=== PATIENT | male | born 2000 | race African-American/Black ===

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

== ENCOUNTER 2023-10-05 20:47 | Emergency (ER) | payer SELFPAY ==
[2023-10-05 20:49] VITALS: BP 137/92; PULSE 70; RESP 18; TEMP 37.6; O2SAT 99; BMI 26.9
--- NOTE | 2023-10-05 23:28 | ED.DENTAL ---
HPI - Dental/Oral General Chief complaint: Dental/Oral Stated complaint: face hurts/teeth/head Time Seen by Provider: 10/05/23 22:52 Source: patient Mode of arrival: Ambulatory History of Present Illness HPI Narrative: Patient is a healthy 22-year-old male who presents today with dental pain. It has been off and on for about the last 2 weeks but got significantly worse. Definitely sensitive to cold. He noticed a large chip in the site of his tooth. No fever chills. In excruciating pain. Takes Tylenol Motrin and marijuana. Related Data Previous Rx's Medication Instructions Recorded amoxicillin 500 mg capsule 500 mg PO BID #14 caps 10/06/23 gabapentin 300 mg capsule 300 mg PO BEDTIME #30 caps 10/06/23 Allergies Allergy/AdvReac Type Severity Reaction Status Date / Time No Known Drug Allergies Allergy Verified 07/04/20 09:44 Patient History Social History Smoking Status: Current every day smoker Smoking Status: Current every day smoker tobacco type: cigarettes alcohol intake frequency: holidays/special occasions only Alcohol type: beer Substance Use Type: marijuana and hallucinogens Exam Initial Vital Signs Initial Vital Signs: Vital Signs Temperature 99.6 F 10/05/23 20:49 Pulse Rate 70 10/05/23 20:49 Respiratory Rate 18 10/05/23 20:49 Blood Pressure 137/92 H 10/05/23 20:49 Pulse Oximetry 99 10/05/23 20:49 Oxygen Delivery Method Room Air 10/05/23 20:49 GENERAL: 22-year-old male appears in pain HENT: No significant facial swelling redness trismus CARDIOVASCULAR: peripheral pulses in tact, cap refill <2 sec RESPIRATORY: No respiratory distress, speaks in full sentences without difficulty EXTREMITIES: Normal range of motion, no clubbing or edema. Neurovascularly intact NEUROLOGICAL: Cranial nerves II through XII grossly intact. Normal gait and speech. SKIN: Warm, dry, no petechiae, no rashes or lesions. HENMT Adult Head Mouth w/Numbe Teeth: 1. Hole noted tooth 2. On the out side, no abscess Procedures Nerve Block Nerve Block 1: Time out performed: Yes Local Anesthetic: lidocaine 1% Amount of anesthesia used (mL): 1 Side: right Intraoral Nerve Block: supraperiosteal Procedure Successful: Yes Patient Tolerated Procedure: Well and No complications Course Orders Ordered: Discontinued Medications Amoxicillin (Amoxicillin 250 Mg Prepack) 1 bottle MISC DIRECTED ONE Stop: 10/05/23 23:58 Last Admin: 10/06/23 00:06 Dose: 1 bottle Documented By: KHANH Gabapentin (Gabapentin 300 Mg Capsule) 300 mg PO NOW ONE Stop: 10/05/23 23:58 Last Admin: 10/06/23 00:06 Dose: 300 mg Documented By: KHANH Vital Signs Vital signs: Vital Signs - 8 hr 10/05/23 20:49 10/06/23 00:13 Temperature 99.6 F Pulse Rate 70 60 Respiratory Rate 18 18 Blood Pressure 137/92 H 140/79 Pulse Oximetry 99 98 Oxygen Delivery Method Room Air Room Air MDM - Dental/Oral MDM Narrative Medical decision making narrative: Patient 22-year-old male presents today with dental pain has progressively gotten worse. He has an obvious deformity been missing enamel and dentin to the lateral side of his tooth. He did actually receive relief with a dental block. Tolerated procedure well. Cold packs was placed. Instructed soft diet. He is trying to get into a dentist he was waiting for insurance. He has no obvious dental abscess. He is being put on antibiotics as well. Given a dose gabapentin as well to help Discharge Plan Departure Patient Disposition: Home Clinical Impression: Dental injury Instructions: Tooth Fracture Activity Restrictions/Additional Instructions: *You have been diagnosed with dental injury *What to do: At this time soft diet. I suspect that that covering will fall off at some point. Do your best. You definitely need to follow-up with a dentist. *Continue to take medications as directed--> [facility] [place] Amoxicillin 500 mg twice a day for 7 days Gabapentin 300 mg at nighttime if needed for nerve pain Motrin 600 mg every 6 hours if needed for loic-ic-ssrnqcvj pain Tylenol 1000 mg every 6 hours if needed for iroi-[id number] pain *Follow up with your primary care provider in 2-3 days or call [phone] *Return to ER if you should have increasing pain swelling redness fever or any new, worsening or concerning symptoms Prescriptions: New amoxicillin 500 mg capsule 500 mg PO BID Qty: 14 0RF gabapentin 300 mg capsule 300 mg PO BEDTIME Qty: 30 0RF Referrals: Luke Vincent MD [Primary Care Provider] - Stand Alone Forms: Patient Portal/API
[2023-10-06] MEDS: AMOXICILLIN 250 MG PREPACK 1 BOTTLE MISC (00:06)
[2023-10-06] MEDS: GABAPENTIN 300 MG CAPSULE PO (00:06)
[2023-10-06 00:13] VITALS: BP 140/79; PULSE 60; RESP 18; O2SAT 98
== END 2023-10-06 00:12 | disposition home or self-care (01) ==
PROVIDERS: Emergency Provider Emergency Medicine; PCP Pediatrics
DX: K08.89 Other specified disorders of teeth and supporting structures (principal); S09.93XA Unspecified injury of face, initial encounter
CPT/HCPCS: 64400; 99283

== ENCOUNTER 2023-10-10 17:07 | Emergency (ER) | payer SELFPAY ==
[2023-10-10 17:12] VITALS: BP 142/82; PULSE 66; RESP 20; TEMP 36.4; O2SAT 98; BMI 25.7
[2023-10-10] MEDS: LIDOCAINE VISCOUS 2% 15 ML SOLUTION PO (17:50)
--- NOTE | 2023-10-10 18:05 | ED_ITS ---
HPI - Dental/Oral <Whitley Geiger PA-C - Last Filed: 10/10/23 18:57> General Chief complaint: Dental/Oral Stated complaint: tooth pain Time Seen by Provider: 10/10/23 17:19 Source: patient and other Mode of arrival: Family Vehicle History of Present Illness HPI Narrative: Patient is a 22-year-old who presents with dental pain. He was seen in the emergency room on 10/05/2023 for the same. He received a dental block and was prescribed Augmentin and gabapentin. He has been taking these medications but is having excruciating pain. He is also taking ibuprofen. He denies fever, chills, or bleeding from the site. He denies difficulty swallowing or managing his secretions. He went to the dentist at [facility] yesterday and they advised him that he will need to have that tooth extracted. He did not schedule a follow up appointment. He does not have a regular dentist. Related Data Previous Rx's Medication Instructions Recorded amoxicillin 500 mg capsule 500 mg PO BID #14 caps 10/06/23 gabapentin 300 mg capsule 300 mg PO BEDTIME #30 caps 10/06/23 Allergies Allergy/AdvReac Type Severity Reaction Status Date / Time No Known Drug Allergies Allergy Verified 07/04/20 09:44 Review of Systems <Whitley Geiger PA-C - Last Filed: 10/10/23 18:57> Review of Systems ROS Unobtainable: All systems reviewed & are unremarkable except as noted in HPI and below Patient History <Whitley Geiger PA-C - Last Filed: 10/10/23 18:57> Social History Smoking Status: Current every day smoker Smoking Status: Current every day smoker tobacco type: cigarettes alcohol intake frequency: holidays/special occasions only Alcohol type: beer Substance Use Type: marijuana and hallucinogens Exam <Whitley Geiger PA-C - Last Filed: 10/10/23 18:57> Narrative Exam Narrative: GENERAL: 22 year old patient appears stated age. Well-developed patient, in moderate distress. NEURO: AOx3. HEAD: Atraumatic. Normocephalic. EYES: Pupils equal round and reactive. Extraocular motions intact. No scleral icterus. No injection or drainage. ENT: Nose without bleeding or purulent drainage. Visible deformity of the right upper 2nd molar. No surrounding redness, erythema, drainage or evidence of abscess. No tender lymphadenopathy, no mastoid tenderness. Throat without erythema, tonsillar hypertrophy or exudate. Airway patent. RESPIRATORY: No distress. EXTREMITIES: No edema or joint tenderness. SKIN: No rash or erythema of visible areas Initial Vital Signs Initial Vital Signs: Vital Signs Temperature 97.5 F L 10/10/23 17:12 Pulse Rate 66 10/10/23 17:12 Respiratory Rate 20 10/10/23 17:12 Blood Pressure 142/82 H 10/10/23 17:12 Pulse Oximetry 98 10/10/23 17:12 Oxygen Delivery Method Room Air 10/10/23 17:12 <Dewayne Catalan DO - Last Filed: 10/10/23 19:23> Initial Vital Signs Initial Vital Signs: Vital Signs Temperature 97.5 F L 10/10/23 17:12 Pulse Rate 66 10/10/23 17:12 Respiratory Rate 20 10/10/23 17:12 Blood Pressure 142/82 H 10/10/23 17:12 Pulse Oximetry 98 10/10/23 17:12 Oxygen Delivery Method Room Air 10/10/23 17:12 Procedures <Whitley Geiger PA-C - Last Filed: 10/10/23 18:57> Nerve Block Nerve Block 1: Time out performed: Yes Local Anesthetic: lidocaine 2% and with epi Amount of anesthesia used (mL): 1.5 Side: right Intraoral Nerve Block: superior alveolar (posterior superior) Procedure Successful: Yes Patient Tolerated Procedure: Well Complications: none Additional Comments: Premedicated with viscous lidocaine to the injection site for 10 minutes prior to the procedure. Patient tolerated well and reports postprocedure pain score of 3/10, comfortable enough to go to sleep. Course <Whitley Geiger PA-C - Last Filed: 10/10/23 18:57> Orders Ordered: Discontinued Medications Bupivacaine HCl/Epinephrine Bitart (Bupivacaine 0.25% W/ Epi (Pf) 10 Ml Vial) 5 ml SUBCUT NOW ONE Stop: 10/10/23 17:41 Last Admin: 10/10/23 18:30 Dose: Not Given Documented By: KLS Lidocaine HCl (Lidocaine Viscous 2% 15 Ml Solution) 15 ml PO NOW ONE Stop: 10/10/23 17:41 Last Admin: 10/10/23 17:50 Dose: 15 ml Documented By: SB Lidocaine/Epinephrine (Lidocaine 2% W/Epi Inj) 20 ml INJ INTRA-OP ONE Stop: 10/10/23 18:10 Last Admin: 10/10/23 18:19 Dose: 20 ml Documented By: SB Vital Signs Vital signs: Vital Signs - 8 hr 10/10/23 17:12 10/10/23 18:45 Temperature 97.5 F L 98.2 F Pulse Rate 66 61 Respiratory Rate 20 16 Blood Pressure 142/82 H 126/62 Pulse Oximetry 98 97 Oxygen Delivery Method Room Air Room Air <Dewayne Catalan DO - Last Filed: 10/10/23 19:23> Orders Ordered: Discontinued Medications Bupivacaine HCl/Epinephrine Bitart (Bupivacaine 0.25% W/ Epi (Pf) 10 Ml Vial) 5 ml SUBCUT NOW ONE Stop: 10/10/23 17:41 Last Admin: 10/10/23 18:30 Dose: Not Given Documented By: FAIZAN Lidocaine HCl (Lidocaine Viscous 2% 15 Ml Solution) 15 ml PO NOW ONE Stop: 10/10/23 17:41 Last Admin: 10/10/23 17:50 Dose: 15 ml Documented By: SB Lidocaine/Epinephrine (Lidocaine 2% W/Epi Inj) 20 ml INJ INTRA-OP ONE Stop: 10/10/23 18:10 Last Admin: 10/10/23 18:19 Dose: 20 ml Documented By: SB Vital Signs Vital signs: Vital Signs - 8 hr 10/10/23 17:12 10/10/23 18:45 Temperature 97.5 F L 98.2 F Pulse Rate 66 61 Respiratory Rate 20 16 Blood Pressure 142/82 H 126/62 Pulse Oximetry 98 97 Oxygen Delivery Method Room Air Room Air MDM - Dental/Oral <Whitley Geiger PA-C - Last Filed: 10/10/23 18:57> MDM Narrative Medical decision making narrative: Multiple etiologies for patient's symptoms considered including, but not limited to: Dental pain, dental infection Patient returns to the ER for treatment of dental pain. He saw the dentist yesterday but does not have a follow up appointment for tooth extraction. He does not have a regular dentist. He says his pain is out of control (08/09) despite taking ibuprofen, gabapentin and his Augmentin. He has no fever or chills and no evidence of infection. Discussed limited interventions to help him at this time. He is interested in trying another nerve block and we will proceed with this. A posterior superior alveolar block was completed and patient reports a decrease in his pain to 3/10, was dozing off on reassessment. Patient is very satisfied and tolerated the procedure well. Discussed importance of following up Thursday morning to schedule surgery with a dentist. He should complete his antibiotic course. Patient's symptoms improved over duration of stay with above-stated therapies. Findings and discharge diagnosis discussed with patient/family followed by verbalization of understanding Return precautions discussed with patient/family whom verbalize understanding of diagnosis and plan Discharge Plan Departure Patient Disposition: Home Clinical Impression: Fracture of tooth Qualifiers: Encounter type: subsequent encounter Fracture type: open Fracture healing: with delayed healing Qualified Code(s): S02.5XXG - Fracture of tooth (traumatic), subsequent encounter for fracture with delayed healing Instructions: DI for Dental Pain, Tooth Fracture Activity Restrictions/Additional Instructions: *You have been diagnosed with dental pain. Hopefully the dental nerve block we will provide you with some relief this evening and he can get some sleep. Please call [facility] 29 thing on Thursday to schedule an appointment for tooth extraction. Another good resource is the dental teaching [facility]. If you develop a fever or chills, please return for reassessment. Finish all the doses of antibiotic. *What to do: *Please continue to take your regular medications as directed. [ ] New medication prescriptions sent to your pharmacy: [ ] [ ] New medication written as a paper prescription [x] No new medications given *Please follow up with your primary care provider in 2-3 days, call for an appointment. Let them know you were seen in the Emergency Department and that we ask that you be seen in follow up. We will electronically transmit a record of today's note if your PCP is in our system *If you do not have a primary care provider please contact the [facility] Resource line at [phone]. They will ask some questions about your medical history and help get you set up with a doctor in the community. *Return to Emergency Department if you should have any new, worsening or concerning symptoms, such as [fever greater than 101 F, shaking chills, worsening pain, persistent vomiting or other concerning symptoms]. Prescriptions: No Action amoxicillin 500 mg capsule 500 mg PO BID Qty: 14 0RF gabapentin 300 mg capsule 300 mg PO BEDTIME Qty: 30 0RF Referrals: Miscellaneous,Doctor, MD [Primary Care Provider] - Stand Alone Forms: Patient Portal/API ED Sign-out <Dewayne Catalan, - Last Filed: 10/10/23 19:23> Cosign ED Attending Cosignature Attestation: Dr Catalan Co-Sign Statement: I was available for consultation during this patient's emergency department visit. This chart is signed by myself for administrative purposes only. I did not have direct contact with this patient during this visit. They were seen independently by the [facility].
[2023-10-10] MEDS: LIDOCAINE 2% W/EPI INJ 20 ML INJ (18:19)
[2023-10-10 18:45] VITALS: BP 126/62; PULSE 61; RESP 16; TEMP 36.8; O2SAT 97
== END 2023-10-10 18:45 | disposition home or self-care (01) ==
PROVIDERS: Emergency Provider Physician Assistant
DX: S02.5XXG Fracture of tooth (traumatic), subsequent encounter for fracture with delayed healing (principal)
CPT/HCPCS: 64400; 99282; 99283

== ENCOUNTER 2025-01-03 10:10 | Emergency (ER) | payer SELFPAY ==
[2025-01-03 10:16] VITALS: BP 137/84; PULSE 70; RESP 18; TEMP 37; O2SAT 98; BMI 25.7
--- NOTE | 2025-01-03 11:53 | ED.BACK ---
HPI - Back Pain/Injury <Alex Colon PA-C - Last Filed: 01/03/25 12:08> General Chief Complaint: Back Pain/Injury Stated Complaint: Upper back pain Time Seen by Provider: 01/03/25 11:35 Source: patient History of Present Illness HPI Narrative: 24-year-old male presents to the ED with 1 week of acute on chronic lower back pain. Patient states that he has had lower back pain for several months, however he has had an acute exacerbation of the pain for the last week. No trauma. 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 Patient denies numbness, tingling, weakness. Patient localizes the pain to the left lower back, pain sometimes shoots down the leg. No urinary hesitancy, saddle paresthesias, fever, chills. Patient is able to bear weight and walk. Related Data Previous Rx's Medication Instructions Recorded amoxicillin 500 mg capsule 500 mg PO BID #14 caps 10/06/23 gabapentin 300 mg capsule 300 mg PO BEDTIME #30 caps 10/06/23 cyclobenzaprine 10 mg tablet 10 mg PO TID PRN muscle spasm #14 01/03/25 tabs Allergies Allergy/AdvReac Type Severity Reaction Status Date / Time No Known Drug Allergies Allergy Verified 07/04/20 09:44 Review of Systems <Alex Colon PA-C - Last Filed: 01/03/25 12:08> Constitutional Constitutional: Denies chills, Denies fatigue, Denies fever(s), Denies frequent falls, Denies lethargy and Denies weakness Eyes Eyes: Denies change in vision, Denies eye discharge, Denies irritation and Denies loss of vision ENT Ears, Nose, Mouth, and Throat: Denies change in voice, Denies dizziness, Denies neck pain, Denies sore throat and Denies throat swelling Cardiovascular Cardiovascular: Denies chest pain, Denies irregular heart rhythm, Denies lightheadedness, Denies palpitations, Denies dyspnea, Denies dyspnea on exertion and Denies orthopnea Respiratory Respiratory: Denies cough, Denies dyspnea, Denies dyspnea on exertion and Denies wheezing Gastrointestinal Gastrointestinal: Denies abdominal pain, Denies change in bowel habits, Denies diarrhea, Denies nausea and Denies vomiting Musculoskeletal Musculoskeletal: Reports back pain, Denies neck pain, Denies numbness and Reports radiating pain into limb Integumentary/Breasts Skin/Breast: Denies pruritus, Denies erythema, Denies rash and Denies wounds Neurologic Neurologic: Denies behavioral changes, Denies confusion, Denies dizziness, Denies frequent falls, Denies loss of vision, Denies numbness and Denies weakness Psychiatric Psychiatric: Denies anxiety, Denies behavioral changes, Denies confusion, Denies depression, Denies homicidal ideation and Denies suicidal ideation Endocrine Endocrine: Denies fatigue, Denies flushing and Denies palpitations Hematologic/Lymphatic Hematologic/Lymphatic: Denies easy bruising Allergic/Immunologic Allergic/Immunologic: Denies urticaria, Denies throat swelling and Denies wheezing Patient History <Alex Colon PA-C - Last Filed: 01/03/25 12:08> Social History Smoking Status: Current every day smoker Smoking Status: Current every day smoker tobacco type: cigarettes alcohol intake frequency: holidays/special occasions only Alcohol type: beer Exam <Alex Colon PA-C - Last Filed: 01/03/25 12:08> Narrative Exam Narrative: Const General:?cooperative, healthy appearing and comfortable [facility] Head:?normal to inspection Ears:?hearing grossly normal bilaterally Nose:?external nose normal Face and sinus:?normal facial exam and sinuses nontender Mouth:?oral mucosae normal Throat:?posterior oropharynx normal Eyes General:?appearance normal, both eyes and all related structures Neck Neck:?normal visual inspection and no lymphadenopathy noted Resp Effort & Inspection:?normal respiratory effort Auscultation:?clear to auscultation bilaterally Cardio Rate:?regular rate Rhythm:?regular rhythm Musculoskeletal No midline tenderness to palpation. No paraspinal tenderness to palpation. Skin is intact without any signs of erythema or infection. Patient is able to bear weight and walk. Full Range of motion Neurovascularly intact. Neuro General:?patient alert, patient awake and patient oriented x3 Initial Vital Signs Initial Vital Signs: Vital Signs Temperature 98.6 F 01/03/25 10:16 Pulse Rate 70 01/03/25 10:16 Respiratory Rate 18 01/03/25 10:16 Blood Pressure 137/84 01/03/25 10:16 Pulse Oximetry 98 01/03/25 10:16 Oxygen Delivery Method Room Air 01/03/25 10:16 <Michele Bennett MD - Last Filed: 01/03/25 15:08> Initial Vital Signs Initial Vital Signs: Vital Signs Temperature 98.6 F 01/03/25 10:16 Pulse Rate 70 01/03/25 10:16 Respiratory Rate 18 01/03/25 10:16 Blood Pressure 137/84 01/03/25 10:16 Pulse Oximetry 98 01/03/25 10:16 Oxygen Delivery Method Room Air 01/03/25 10:16 Course <Alex Colon PA-C - Last Filed: 01/03/25 12:08> Orders Ordered: Discontinued Medications Ketorolac Tromethamine (Ketorolac 30 Mg/Ml Vial) 30 mg IM NOW ONE Stop: 01/03/25 11:59 Last Admin: 01/03/25 12:08 Dose: 30 mg Documented By: RL Vital Signs Vital signs: Vital Signs - 8 hr 01/03/25 10:16 01/03/25 12:13 Temperature 98.6 F Pulse Rate 70 62 Respiratory Rate 18 16 Blood Pressure 137/84 120/76 Pulse Oximetry 98 99 Oxygen Delivery Method Room Air Room Air <Michele Bennett MD - Last Filed: 01/03/25 15:08> Orders Ordered: Discontinued Medications Ketorolac Tromethamine (Ketorolac 30 Mg/Ml Vial) 30 mg IM NOW ONE Stop: 01/03/25 11:59 Last Admin: 01/03/25 12:08 Dose: 30 mg Documented By: RL Vital Signs Vital signs: Vital Signs - 8 hr 01/03/25 10:16 01/03/25 12:13 Temperature 98.6 F Pulse Rate 70 62 Respiratory Rate 18 16 Blood Pressure 137/84 120/76 Pulse Oximetry 98 99 Oxygen Delivery Method Room Air Room Air MDM - Back Pain/Injury <Alex Colon PA-C - Last Filed: 01/03/25 12:08> MDM Narrative Medical decision making narrative: 24-year-old male presents to the ED with 1 week of acute on chronic lower back pain. Exam is reassuring for no midline tenderness to palpation or paraspinal tenderness to palpation. Patient's symptoms are most consistent with a musculoskeletal strain of the lower back versus disc etiology versus other. Patient given a dose of Toradol in the ED. Muscle relaxants prescribed. Recommend follow-up with PCP as soon as possible for further evaluation, PT referral. ED return precautions discussed with patient. Patient verbalized understanding. Medical records reviewed: Yes Discharge Plan Departure Patient Disposition: Home Clinical Impression: Back pain Qualifiers: Back pain location: low back pain Chronicity: unspecified Back pain laterality: left Sciatica presence: with sciatica Sciatica laterality: sciatica of left side Qualified Code(s): M54.42 - Lumbago with sciatica, left side Instructions: DI for Back Pain With Sciatica Activity Restrictions/Additional Instructions: You were evaluated in the ED today for lower back pain. It appears that you either have strained some muscles in the lower back or you might have a disc related issue. You were given an injection of Toradol in the ED for pain control. You were also being prescribed a muscle relaxant for pain relief. Please note that the muscle relaxant can make you sleepy, therefore refrain from using it when operating machinery or driving. You may also continue to take ibuprofen and Tylenol at home. You may take 800 mg of ibuprofen with food every 8 hours. You may also take 1000 mg of Tylenol every 8 hours. Please follow-up with your PCP for further evaluation, PT referral. Return to the ED if you have worsening symptoms, numbness, tingling, weakness, urinary difficulties. Prescriptions: New cyclobenzaprine 10 mg tablet 10 mg PO TID PRN (Reason: muscle spasm) Qty: 14 0RF No Action amoxicillin 500 mg capsule 500 mg PO BID Qty: 14 0RF gabapentin 300 mg capsule 300 mg PO BEDTIME Qty: 30 0RF Stand Alone Forms: Patient Portal/API/Survey ED Sign-out <Michele Bennett MD - Last Filed: 01/03/25 15:08> Cosign ED Attending Sravani Attestation: I was immediately available in the department for consultation. ?This documentation has been reviewed and I agree with assessment and plan. Supervised by Michele Bennett MD
[2025-01-03] MEDS: KETOROLAC 30 MG/ML VIAL IM (12:08)
[2025-01-03 12:13] VITALS: BP 120/76; PULSE 62; RESP 16; O2SAT 99
== END 2025-01-03 12:13 | disposition home or self-care (01) ==
PROVIDERS: Emergency Provider Student in an Organized Health Care Education/Training Program
DX: M54.42 Lumbago with sciatica, left side (principal); G89.29 Other chronic pain
CPT/HCPCS: 99283; J1885

== ENCOUNTER → 2025-01-05 11:26 | Outpatient (CLI) | payer SELFPAY ==
--- NOTE | 2025-01-05 11:29 | DI.RAD.S_ITS ---
PROCEDURE: XR LUMBAR SPINE 2-3V INDICATIONS: pain w left side sciatica x 1 week TECHNIQUE: 3 views of the lumbar spine were acquired. COMPARISON: None. FINDINGS: Bones: 5 [id number] vertebrae are present. There is trace retrolisthesis of L4 on L5, L5 on S1. Mild foraminal narrowing L5-S1. L5-S1 foraminal narrowing. Slight appearance of wedge deformity at L1. No suspicious bony lesions. Soft tissues: Overlying bowel gas pattern is normal. No suspicious soft tissue calcifications. Moderate colonic stool without obstruction. IMPRESSION: Mild foraminal narrowing L5-S1. Mild wedge deformity at L1 of indeterminate age. No priors. Dictated by: Tiffanie Gaxiola M.D. on 01/05/2025 at 16:02 Approved by: Tiffanie Gaxiola M.D. on 01/05/2025 at 16:03
== END ==
PROVIDERS: PCP Family Medicine; Referring Provider Physician Assistant; Visit Provider Physician Assistant
DX: M54.40 Lumbago with sciatica, unspecified side (principal); M48.07 Spinal stenosis, lumbosacral region; M43.8X6 Other specified deforming dorsopathies, lumbar region
CPT/HCPCS: 72100